=== PATIENT | male | born 1970 | race Caucasian/White ===

== ENCOUNTER 2018-06-01 17:42 | Emergency (ER) | payer OTHER ==
[~2018-06-01] VITALS: Ht 172.7 cm; Wt 98.4 kg
[2018-06-01 18:04] VITALS: BP 126/75; Ht 172.7 cm; Wt 98.4 kg
== END 2018-06-01 18:09 | disposition left against medical advice (07) ==
LOC: ED 17:42
DX: Z53.21 Procedure and treatment not carried out due to patient leaving prior to being seen by health care provider (principal)

== ENCOUNTER 2018-06-02 05:17 | Emergency (ER) | payer OTHER ==
[~2018-06-02] VITALS: Ht 172.7 cm; Wt 98.4 kg
[2018-06-02 05:26] VITALS: Ht 172.7 cm; Wt 98.4 kg
[2018-06-02 07:02] VITALS: BP 123/78
== END 2018-06-02 07:02 | disposition home or self-care (01) ==
LOC: ED 05:17
DX: L03.011 Cellulitis of right finger (principal); I10 Essential (primary) hypertension; E11.9 Type 2 diabetes mellitus without complications
CPT/HCPCS: J2001